=== PATIENT | female | born 1945 | race Caucasian/White ===

== ENCOUNTER → 2016-10-15 | Outpatient (CLI) | payer OTHER ==
[~2016-10-15] MED LIST: ASPIRIN325 PO; BENICAR40 MG PO; CELEXA40 MG PO; COQ-10100 MG PO; CRESTOR10 MG PO; ESTRACE1 MG PO; FISH OIL 1,0001 EAC5 PO; MOBIC15 MG PO; NEURONTIN 300300 M1 PO; NUCYNTA50 MG PO; NUCYNTA75 MG PO; PRAVACHOL40 MG PO; PROTONIX40 M1 PO; REGLAN 10 MG TA10 MG PO; SYNTHROID50 MCG PO; TEGRETOL XR100 MG PO; TOPROL XL25 MG PO; VALACYCLOVIR500 MG PO
== END ==
LOC: ULTRA 10:11
DX: R10.9 Unspecified abdominal pain (principal)

== ENCOUNTER 2016-10-16 09:16 | Emergency (ER) | payer OTHER ==
[~2016-10-16] VITALS: Ht 157.5 cm; Wt 54.4 kg
[~2016-10-16 09:16] MED LIST changes: -COQ-10100 MG PO; -CRESTOR10 MG PO; -MOBIC15 MG PO; -PROTONIX40 M1 PO; -REGLAN 10 MG TA10 MG PO; -TOPROL XL25 MG PO; -VALACYCLOVIR500 MG PO
[2016-10-16 09:33] LABS: URINE BILIRUBIN NEGATIVE (Negative); URINE BLOOD NEGATIVE (Negative); URINE COLOR YELLOW; URINE GLUCOSE-RANDOM* NEGATIVE (Negative); URINE KETONES NEGATIVE (Negative); URINE NITRITE NEGATIVE (Negative); URINE PROTEIN (DIPSTICK) NEGATIVE (Negative); URINE SPECIFIC GRAVITY <= 1.005 (1.003-1.035); URINE UROBILINOGEN 0.2 E.U./dl (0.2-1.0)
[2016-10-16] MEDS ORDERED: TOPROL XL25 MG PO (09:36)
[2016-10-16] MEDS ORDERED: COQ-10100 MG PO (09:36)
[2016-10-16] MEDS ORDERED: PROTONIX40 M1 PO (09:36)
[2016-10-16] MEDS ORDERED: CRESTOR10 MG PO (09:36)
[2016-10-16] MEDS ORDERED: VALACYCLOVIR500 MG PO (09:37)
[2016-10-16 09:42] LABS: ABSOLUTE NEUTROPHILS 3.2 thou/uL (1.4-8.2); BASOPHILS 0.6 % (0.0-2.0); EOSINOPHILS 0.5 % (0.0-3.0); HEMATOCRIT 41.6 % (37.0-47.0); HEMOGLOBIN 14.1 gm/dL (12.0-15.0); LYMPHOCYTES 27.4 % (24.0-44.0); MCH 31.8 pg (26.0-34.0); MCHC 33.8 % (28.0-37.0); MCV 94.1 fL (80.0-100.0); MONOCYTES 9.2 % (1.0-8.0); PLATELET COUNT 241 thou/uL (150-400); POLYS 62.3 % (36.0-66.0); RBC 4.42 mil/uL (4.20-5.00); RDW 13.2 % (10.5-14.5); WBC 5.1 thou/uL (4.0-11.0)
[2016-10-16 09:46] LABS: MANUAL DIFF NO
[2016-10-16 09:50] LABS: CALCIUM 9.8 mg/dL (8.5-10.1); CREATININE 0.8 mg/dL (0.6-1.3); POTASSIUM 3.9 mmol/L (3.5-5.1)
[2016-10-16 09:55] LABS: ALBUMIN 4.4 g/dL (3.4-5.0); TOTAL BILIRUBIN 0.9 mg/dL (<0.1-1.0); TOTAL PROTEIN 8.2 g/dL (6.4-8.2)
[2016-10-16] MEDS ORDERED: MOBIC15 MG PO (10:58)
[2016-10-16] MEDS ORDERED: REGLAN 10 MG TA10 MG PO (11:01)
[2016-10-16 11:09] VITALS: BP 144/78
== END 2016-10-16 11:10 | disposition home or self-care (01) ==
LOC: ER 09:16
PROVIDERS: Physician Assistant
DX: K56.7 Ileus, unspecified (principal); R10.2 Pelvic and perineal pain; F10.99 Alcohol use, unspecified with unspecified alcohol-induced disorder; Z90.710 Acquired absence of both cervix and uterus; Z95.5 Presence of coronary angioplasty implant and graft; Z87.891 Personal history of nicotine dependence; Z88.8 Allergy status to other drugs, medicaments and biological substances

== ENCOUNTER → 2018-04-02 | Outpatient (CLI) | payer OTHER ==
[~2018-04-02] MED LIST changes: +COQ-10100 MG PO; +CRESTOR10 MG PO; +MOBIC15 MG PO; +PROTONIX40 M1 PO; +REGLAN 10 MG TA10 MG PO; +TOPROL XL25 MG PO; +VALACYCLOVIR500 MG PO
== END ==
LOC: RAD 10:12
DX: M48.04 Spinal stenosis, thoracic region (principal); M43.16 Spondylolisthesis, lumbar region; M51.36 Other intervertebral disc degeneration, lumbar region; M48.061 Spinal stenosis, lumbar region without neurogenic claudication; R53.83 Other fatigue; R61 Generalized hyperhidrosis

== ENCOUNTER → 2018-09-01 | Outpatient (CLI) | payer OTHER | LOC: RAD 13:42 → LABMALL 13:42 | DX: R06.02 Shortness of breath (principal); E78.5 Hyperlipidemia, unspecified; E03.9 Hypothyroidism, unspecified; M41.84 Other forms of scoliosis, thoracic region ==

== ENCOUNTER → 2020-05-17 | Outpatient (CLI) | payer OTHER | LOC: RAD 12:44 | PROVIDERS: ATTEND Nurse Practitioner | DX: M47.22 Other spondylosis with radiculopathy, cervical region (principal); M50.11 Cervical disc disorder with radiculopathy, high cervical region ==

== ENCOUNTER → 2020-12-12 | Outpatient (CLI) | payer OTHER | LOC: SJCVC 13:36 | PROVIDERS: ATTEND Internal Medicine Cardiovascular Disease | DX: I25.10 Atherosclerotic heart disease of native coronary artery without angina pectoris (principal); R94.31 Abnormal electrocardiogram [ECG] [EKG]; I11.9 Hypertensive heart disease without heart failure; E78.00 Pure hypercholesterolemia, unspecified; Z98.61 Coronary angioplasty status; Z98.890 Other specified postprocedural states; Z88.8 Allergy status to other drugs, medicaments and biological substances; Z79.82 Long term (current) use of aspirin; Z79.899 Other long term (current) drug therapy; Z86.16 Personal history of COVID-19 ==

== ENCOUNTER → 2020-12-14 | Outpatient (CLI) | payer OTHER | LOC: MRI 08:00 | PROVIDERS: ATTEND Nurse Practitioner | DX: M47.22 Other spondylosis with radiculopathy, cervical region (principal); M48.061 Spinal stenosis, lumbar region without neurogenic claudication ==

== ENCOUNTER → 2021-06-14 | Outpatient (CLI) | payer OTHER | LOC: SJCVCIMAG 09:06 | PROVIDERS: ATTEND Internal Medicine Cardiovascular Disease | DX: I08.1 Rheumatic disorders of both mitral and tricuspid valves (principal); I25.10 Atherosclerotic heart disease of native coronary artery without angina pectoris; E03.9 Hypothyroidism, unspecified; E78.00 Pure hypercholesterolemia, unspecified; I10 Essential (primary) hypertension; F41.9 Anxiety disorder, unspecified; E78.5 Hyperlipidemia, unspecified; Z86.16 Personal history of COVID-19; Z79.82 Long term (current) use of aspirin; Z79.899 Other long term (current) drug therapy; Z88.8 Allergy status to other drugs, medicaments and biological substances; Z72.89 Other problems related to lifestyle ==